=== PATIENT | female | born 1965 | race Caucasian/White ===

== ENCOUNTER 2021-07-15 21:40 | Emergency (ER) | payer MEDICAID ==
[~2021-07-15] VITALS: Ht 167.6 cm; Wt 71.7 kg
--- NOTE | 2021-07-15 22:30 | NUR ---
TO ER BED 6. BIBS C/O FLULIKE SYMPTOMSX 2 DAYS , TESTED POSITIVE COVID TODAY W/ RAPID HOME TEST. V/S WITHIN LIMITS. NOT IN RESPIRATORY DISTRESS. CONNECTED TO MONITOR. COVID PRECAUTIONS IN PLACE. AWAITING MD HUFF
--- NOTE | 2021-07-15 23:01 | NUR ---
COVID SWAB DONE AND SENT TO LAB
--- NOTE | 2021-07-16 00:21 | NUR ---
PT DISCHARGED IN STABLE CONDITION
[2021-07-16 00:22] VITALS: BP 131/84
== END 2021-07-16 00:22 | disposition home or self-care (01) ==
LOC: ER 21:47
DX: U07.1 COVID-19 (principal); R03.0 Elevated blood-pressure reading, without diagnosis of hypertension
CPT/HCPCS: 87426; 99283; C9803